=== PATIENT | male | born 1955 | race Hispanic/Latino ===

== ENCOUNTER 2024-01-23 01:02 | Emergency (ER) | payer BC, OTHER ==
[~2024-01-23] VITALS: Ht 182.9 cm; Wt 97.1 kg
[~2024-01-23 01:02] MED LIST: FLUT9.9S NS; JUICE PLUS PO; VIT D PO
[2024-01-23 01:26] LABS: SARS-CoV-2, RNA, NAAT NEGATIVE SARS CoV-2 (NEGATIVE)
[2024-01-23 02:39] VITALS: BP 152/65; PULSE 78; RESP 18; O2SAT 99
== END 2024-01-23 02:40 | disposition home or self-care (01) ==
LOC: EDH 01:02
DX: Z20.822 Contact with and (suspected) exposure to COVID-19 (principal); Z79.899 Other long term (current) drug therapy
CPT/HCPCS: 87635